=== PATIENT | female | born 1995 | race African-American/Black ===

== ENCOUNTER 2022-04-18 22:32 | Emergency (ER) | payer OTHER ==
[~2022-04-18] VITALS: Ht 170.2 cm; Wt 68.0 kg
--- NOTE | 2022-04-18 23:00 | NUR ---
LAB AT BEDSIDE
[2022-04-18 23:35] LABS: BASOPHILS % (AUTO) 0.4 % (0.0-2.0); EOSINOPHILS % (AUTO) 4.1 % (0.0-6.0); HEMATOCRIT 32 % (33-45); HEMOGLOBIN 11.1 g/dL (11.5-14.8); LYMPHOCYTES # (AUTO) 2.4 K/uL (0.8-4.8); MEAN CORPUSCULAR HGB CONC 35 g/dl (31.0-36.0); MEAN CORPUSCULAR VOLUME 103 fL (82-100); MONOCYTES # (AUTO) 0.4 K/uL (0.1-1.30); MONOCYTES % (AUTO) 8.8 % (2.0-12.0); NEUTROPHILS # (AUTO) 1.8 K/uL (1.8-8.9); NEUTROPHILS % (AUTO) 37.7 % (43.0-81.0); PLATELET COUNT (AUTO) 326 K/uL (150-450); RED BLOOD CELL COUNT(AUTO) 3.11 MIL/uL (4.0-5.2); WHITE BLOOD COUNT (AUTO) 4.8 K/uL (4.3-11.0)
[2022-04-18 23:36] LABS: BILIRUBIN,URINE NEGATIVE (NEGATIVE); COLOR,URINE YELLOW (YELLOW); LEUKOCYTE ESTERASE ,URINE NEGATIVE (NEGATIVE); NITRITE, URINE NEGATIVE (NEGATIVE); PROTEIN,URINE NEGATIVE (NEGATIVE); UGLUCOSE NEGATIVE (NEGATIVE); UROBILINOGEN,URINE 0.2 EU/dL (0.2)
[2022-04-18 23:38] LABS: ALANINE AMINOTRANSFERASE 28 U/L (12-78); ALCOHOL, BLOOD 238 mg/dL (0-0); ALKALINE PHOSPHATASE 66 U/L (46-116); ASPARTATE AMINOTRANSFERASE 41 U/L (15-37); BILIRUBIN,DIRECT 0.2 mg/dL (0.0-0.2); BILIRUBIN,TOTAL 0.7 mg/dL (0.2-1.0); CARBON DIOXIDE 21 mmol/L (21-32); CHLORIDE 105 mmol/L (98-107); CREATININE 0.7 mg/dL (0.6-1.3); GLUCOSE 104 mg/dL (74-106); SODIUM SERUM 141 mmol/L (136-145); TOTAL PROTEIN, SERUM 7.9 g/dL (6.4-8.2); UREA NITROGEN, BLOOD 4 mg/dL (7-18)
[2022-04-18 23:48] LABS: ACETAMINOPHEN < 2 ug/ml (10-30); POTASSIUM 2.6 mmol/L (3.5-5.1)
--- NOTE | 2022-04-18 23:48 | NUR ---
POTASSIUM2.6
[2022-04-19] MEDS ORDERED: POTASSIUM CHLORIDE 20 MEQ TAB.PRT.SR PO ONE ×4 (00:30→17:52)
--- NOTE | 2022-04-19 02:53 | NUR ---
PAGED APARTMENT ASSISTANT MANAGER MARY JO. HE WILL EVALUATE PATIENT IN 35-60 MINUTES.
--- NOTE | 2022-04-19 03:39 | NUR ---
CRISIS TRIMMER SORTER MARY JO AT BEDSIDE
--- NOTE | 2022-04-19 09:13 | NUR ---
ASSISTED PT TO BATHROOM; SITTER W/ PT. BREAKFAST TRAY PROVIDED.
--- NOTE | 2022-04-19 12:57 | NUR ---
Psych placement: SW faxed clnicals tot he following psych hospitals: [facility] tel:[phone] FAX:[phone]; [phone] [facility] TEL: [phone] fax: [phone] Ju[facility] Hui tel: [phone] fax: [phone] [facility] [phone]
--- NOTE | 2022-04-19 14:10 | NUR ---
Pt. has been accepted to [facility][[id number] [facility] [address]] room 1102B under the care of Dr. Foster. Nurse to Nurse report to be called in [phone] at 1445. SW notified Valentin ricks for transport to be set up.
--- NOTE | 2022-04-19 14:53 | NUR ---
CALLED [facility] SET UP S TRANSPORT ETA 170
--- NOTE | 2022-04-19 15:08 | NUR ---
REPORT GIVEN TO ALEXIA FOR [facility]
--- NOTE | 2022-04-19 15:12 | NUR ---
ALEXIA FROM [facility] CALLED AND STATED THEY WILL NOT ACCEPT PT UNLESS POTASSIUM IS REDRAWN
--- NOTE | 2022-04-19 15:55 | NUR ---
FAX NUMBER FOR [facility] IS [phone]
[2022-04-19 15:58] LABS: POTASSIUM 2.9 mmol/L (3.5-5.1)
[2022-04-19 16:02] LABS: ALCOHOL, BLOOD < 3 mg/dL (0-0)
--- NOTE | 2022-04-19 16:07 | NUR ---
SS consult requested for homelessness. SW will follow up at a later time. Addendum: 04/19/22 at 1608 by CESAR Disregard note for a different pt.
[2022-04-19] MEDS ORDERED: IV NS 0.9% 1,000 ML BAG IV ONE (16:30)
[2022-04-19] MEDS ORDERED: MAGNESIUM OXIDE 400 MG TABLET PO ONE (16:30)
[2022-04-19] MEDS ORDERED: MAGNESIUM OXIDE 400 MG TABLET ONE (17:52)
--- NOTE | 2022-04-19 23:18 | NUR ---
SEEN AND EVALUATED BY DR SAENZ, PSYCHIATRIC AT THE BED SIDE
[2022-04-20 05:00] VITALS: BP 125/70
--- NOTE | 2022-04-20 06:00 | NUR ---
rec'd a call from [facility]; patient got accepted at [facility], RM 1102B, by Dr Foster. # for report: [phone] address: [address] [place] [address]. [place] [phone]
--- NOTE | 2022-04-20 06:09 | NUR ---
REPORT GIVEN TO DORYS BOX FOR DELMAR 07:30
--- NOTE | 2022-04-20 07:23 | NUR ---
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
--- NOTE | 2022-04-20 07:50 | NUR ---
Patient discharged to [facility] in stable condition, picked up by dust collector/private ambulance. Written and verbal after care instructions given. Belongings returned to pt.
== END 2022-04-20 07:58 ==
LOC: ER 22:34
DX: T65.892A Toxic effect of other specified substances, intentional self-harm, initial encounter (principal); R00.0 Tachycardia, unspecified; Y92.89 Other specified places as the place of occurrence of the external cause; I10 Essential (primary) hypertension; R45.851 Suicidal ideations; Z87.81 Personal history of (healed) traumatic fracture; F32.A Depression, unspecified; Z20.822 Contact with and (suspected) exposure to COVID-19
CPT/HCPCS: 36415; 80048-TC; 80076-TC; 84703-TC; 85025-TC; G0480

== ENCOUNTER 2023-07-04 11:48 | Emergency (ER) | payer OTHER ==
[~2023-07-04] VITALS: Ht 170.2 cm; Wt 68.5 kg
[2023-07-04 13:01] LABS: APPEARANCE,URINE CLEAR (CLEAR); BILIRUBIN,URINE 1+ (NEGATIVE); BLOOD, URINE NEGATIVE Ery/uL (NEGATIVE); COLOR,URINE YELLOW (YELLOW); KETONES,URINE TRACE mg/dL (NEGATIVE); LEUKOCYTE ESTERASE ,URINE NEGATIVE (NEGATIVE); NITRITE, URINE NEGATIVE (NEGATIVE); PH,URINE 6.5 (5.0-8.0); PROTEIN,URINE 1+ mg/dl (NEGATIVE); UGLUCOSE NEGATIVE (NEGATIVE)
[2023-07-04 13:09] LABS: PREGNANCY TEST URINE QUAL NEGATIVE (NEGATIVE)
[2023-07-04] MEDS ORDERED: LOPE1LIQ56 PO (13:13)
[2023-07-04 13:34] LABS: RBC,URINE 0-2 /HPF (0-2)
[2023-07-04 13:35] VITALS: BP 120/84; TEMP 98.6; O2SAT 98
[2023-07-04 13:35] LABS: ADD URINE CULTURE NO; BACTERIA,URINE Few /HPF (None Seen); SQUAMOUS EPITHELIAL CELL,UR Moderate /HPF (None Seen)
== END 2023-07-04 13:37 | disposition home or self-care (01) ==
LOC: ER 11:55
DX: R19.7 Diarrhea, unspecified (principal); I10 Essential (primary) hypertension; F17.200 Nicotine dependence, unspecified, uncomplicated; Z79.899 Other long term (current) drug therapy
CPT/HCPCS: 81001; 84703-TC

== ENCOUNTER 2024-05-13 20:25 | Emergency (ER) | payer OTHER ==
[~2024-05-13] VITALS: Ht 170.2 cm; Wt 63.5 kg
[~2024-05-13 20:25] MED LIST: LOPE1LIQ56 PO
[2024-05-13 20:53] VITALS: TEMP 98
[2024-05-13 22:17] LABS: BASOPHILS % (AUTO) 0.4 % (0.0-2.0); EOSINOPHILS # (AUTO) 0.1 K/uL (0.0-0.7); HEMATOCRIT 39 % (33-45); HEMOGLOBIN 13.2 g/dL (11.5-14.8); LYMPHOCYTES # (AUTO) 3.2 K/uL (0.8-4.8); LYMPHOCYTES % (AUTO) 53.3 % (20.0-44.0); MEAN CORPUSCULAR HEMOGLOBIN 37 PG (26.0-33.0); MEAN CORPUSCULAR HGB CONC 33 g/dl (31.0-36.0); MEAN CORPUSCULAR VOLUME 109 fL (82-100); MONOCYTES # (AUTO) 0.5 K/uL (0.1-1.30); MONOCYTES % (AUTO) 9.2 % (2.0-12.0); NEUTROPHILS # (AUTO) 2.1 K/uL (1.8-8.9); NEUTROPHILS % (AUTO) 35.1 % (43.0-81.0); PLATELET COUNT (AUTO) 257 K/uL (150-450); RED CELL DISTRIBUTION WIDTH 19.1 % (11.5-15.0); WHITE BLOOD COUNT (AUTO) 5.9 K/uL (4.3-11.0)
[2024-05-13] MEDS ORDERED: LORAZEPAM 1 MG TABLET ONE (22:24)
[2024-05-13 22:25] LABS: CALCIUM, SERUM 9.4 mg/dL (8.5-10.1); CARBON DIOXIDE 27 mmol/L (21-32); CHLORIDE 101 mmol/L (98-107); CREATININE 0.6 mg/dL (0.6-1.3); GLUCOSE 118 mg/dL (74-106); POTASSIUM 2.9 mmol/L (3.5-5.1); SODIUM SERUM 141 mmol/L (136-145); UREA NITROGEN, BLOOD 9 mg/dL (7-18)
[2024-05-13] MEDS: LORAZEPAM 1 MG TABLET PO ONE (22:27)
[2024-05-13 22:31] LABS: ALANINE AMINOTRANSFERASE 52 U/L (12-78); ALBUMIN 3.9 g/dL (3.4-5.0); ALCOHOL, BLOOD 253 mg/dL (0-10); ALKALINE PHOSPHATASE 140 U/L (46-116); ASPARTATE AMINOTRANSFERASE 132 U/L (15-37); BILIRUBIN,DIRECT 0.2 mg/dL (0.0-0.2); BILIRUBIN,TOTAL 0.9 mg/dL (0.2-1.0); SALICYLATE 5.9 mg/dL (2.8-20.0); TOTAL PROTEIN, SERUM 8.4 g/dL (6.4-8.2)
[2024-05-13 22:34] LABS: ACETAMINOPHEN <10 ug/ml (10-30)
[2024-05-13 23:32] LABS: BASOPHILS % (MANUAL) 0 % (0.0-2.0); EOSINOPHILS % (MANUAL) 3 % (0-4); LYMPHOCYTES % (MANUAL) 55 % (16-48); MONOCYTES % (MANUAL) 7 % (0-11.0); NEUTROPHILS % (MANUAL) 35 (42-76); PLATELET ESTIMATE ADEQUATE
[2024-05-13 23:33] LABS: ANISOCYTOSIS 1+; STOMATOCYTES 1+
--- NOTE | 2024-05-13 23:59 | NUR ---
Urine collected and sent to lab
--- NOTE | 2024-05-14 | NUR ---
ANGELIA RA78 OVER MOBILE PARAMEDICAL EXAMINER DROP OFF IN CALL 911 OVERDOSE
[2024-05-14 00:22] LABS: PREGNANCY TEST URINE QUAL NEGATIVE (NEGATIVE)
[2024-05-14 00:23] LABS: APPEARANCE,URINE CLEAR (CLEAR); BILIRUBIN,URINE NEGATIVE (NEGATIVE); BLOOD, URINE NEGATIVE Ery/uL (NEGATIVE); COLOR,URINE YELLOW (YELLOW); KETONES,URINE NEGATIVE (NEGATIVE); LEUKOCYTE ESTERASE ,URINE NEGATIVE (NEGATIVE); NITRITE, URINE NEGATIVE (NEGATIVE); PROTEIN,URINE NEGATIVE (NEGATIVE); UGLUCOSE NEGATIVE (NEGATIVE); UROBILINOGEN,URINE 0.2 EU/dL (0.2)
[2024-05-14 00:30] LABS: AMPHETAMINE, URINE NEGATIVE (NEGATIVE); BARBITURATE, URINE NEGATIVE (NEGATIVE); BENZODIAZEPINE, URINE NEGATIVE (NEGATIVE); OPIATE, URINE NEGATIVE (NEGATIVE); PHENCYCLIDINE SCREEN,URINE NEGATIVE (NEGATIVE)
[2024-05-14 00:31] LABS: CANNABINOID, URINE POSITIVE (NEGATIVE); COCCAINE, URINE POSITIVE (NEGATIVE)
--- NOTE | 2024-05-14 00:45 | NUR ---
COVID SWAB TAKEN SENT TO LAB
--- NOTE | 2024-05-14 06:48 | NUR ---
PT IS AWAKE, ALERT AND VERBALLY RESPONSIVE. AMBULATROY W STEADY GAITSL PO INTAKE TOLERATED WELL. DENIED SI/HI AND REQUESTING TO LEAVE. WAS ASSESSED BY DR IVERSON AT THE BED SIDE AND OK FOR DISCHARGE,
[2024-05-14 07:01] VITALS: BP 117/72; O2SAT 98
--- NOTE | 2024-05-14 07:01 | NUR ---
Patient discharged to home in stable condition. Written and verbal after care instructions given. Patient verbalizes understanding of instruction.
== END 2024-05-14 07:01 | disposition home or self-care (01) ==
LOC: ER 20:26
DX: R46.2 Strange and inexplicable behavior (principal); R45.1 Restlessness and agitation; I10 Essential (primary) hypertension; Z20.822 Contact with and (suspected) exposure to COVID-19
CPT/HCPCS: 36415; 80048-TC; 80076-TC; 84703-TC; 85025-TC; G0480